=== PATIENT | male | born 1930 | race Caucasian/White ===

== ENCOUNTER 2017-06-22 06:33 | Inpatient (IN) ==
--- NOTE | 2017-06-21 21:35 | Discharge Summary ---
<Sofia Gerard Sim - Last Filed: 06/21/17 21:33> Date of Encounter: 06/21/17 - Discharge Diagnosis (1) Rotator cuff tear arthropathy of right shoulder Priority: Primary Status: Acute (2) Status post total replacement of right shoulder Priority: Primary Status: Acute (3) CAD (coronary artery disease) Priority: Secondary Status: Chronic Qualifiers: Coronary Disease-Associated Artery/Lesion type: unspecified vessel or lesion type [place] vs. transplanted heart: [place] heart Associated angina: without angina Qualified Code(s): I25.10 - Atherosclerotic heart disease of [place] coronary artery without angina pectoris (4) CKD (chronic kidney disease) stage 3, GFR 30-59 ml/min Priority: Secondary Status: Chronic (5) HTN (hypertension) Priority: Secondary Status: Chronic Qualifiers: Hypertension type: essential hypertension Qualified Code(s): I10 - Essential (primary) hypertension (6) History of CVA (cerebrovascular accident) Priority: Secondary Status: Chronic (7) DMII (diabetes mellitus, type 2) Priority: Secondary Status: Chronic Qualifiers: Diabetes mellitus complication status: without complication Diabetes mellitus buttermilk drier operator insulin use: unspecified buttermilk drier operator insulin use status Qualified Code(s): E11.9 - Type 2 diabetes mellitus without complications - Discharge Medications Home Medications: HYDROcodone/Acet 5/325 mg [[place] 5-325 mg] 1 - 2 tab PO Q6H PRN #40 tab [Rx] Cholecalciferol (Vitamin D3) [Vitamin D3] 5,000 unit PO DAILY 06/22/17 [History] Clopidogrel [Plavix] 75 mg PO DAILY 06/22/17 [History] Polyvinyl Alcohol [Artificial Tears] 1 - 2 drop OP TID PRN 06/22/17 [History] Simvastatin [Zocor] 20 mg PO DAILY 06/22/17 [History] amLODIPine [Norvasc] 5 mg PO DAILY 06/22/17 [History] Allergies/Adverse Reactions: 3 Allergy/AdvReac Type Severity Reaction Status Date / Time Penicillins [PCN] AdvReac See Verified 06/22/17 07:02 Comments Primary care physician: Alex Welch MD - Patient Status Disposition: Home, Self-Care Condition: Good - Discharge Instructions Follow Up With: Alex Welch MD [Primary Care Provider] - Oscar Tellez MD [Partnered Physician] - 07/02/17 1:00 pm Additional Instructions: Discharge Instructions: Total Shoulder Please call [facility] ([phone]), your Primary Care Physician, or report to the Emergency Room if you have any of the following symptoms: Nausea, vomiting, fever greater that 101.5, swelling, chest pain, shortness of breath, increased pain/redness/drainage/odor for your incision site, numbness/ tingling, or any other concerning symptoms. ACTIVITY: Always keep your arm in the sling. Do not raise your arm away from your body. Do not use your arm to help with getting in or out of bed. No weight bearing permitted. Only perform those exercises given to you by your therapist. MEDICATIONS: Upon discharge resume your home medications. Take all the medications as prescribed. Take a stool softener if taking narcotic pain medications. Stool softeners are only effective if you drink enough fluids. Drink 6-8 glass of water or fluids a day, unless this is not allowed for another health problem. Despite using stool softeners, if you haven't had a bowel movement in 3 days, please switch to a gentle laxative. Gentle laxatives are sold over the counter. You should have a bowel movement within 24 hours, if not call the office. You will be discharged from the hospital with a prescription for pain medication. You are encouraged to decrease the use of narcotic pain medication as tolerated. Should you require a refill, please call the office. [facility] prescribes narcotic pain medication for only 4-6 weeks after surgery. If you require pain medication beyond this time period, you may be referred to your Primary Care Physician or to the Pain Clinic for further evaluation. Plan ahead for refills on pain medication as many narcotics either need to be picked up at the office or mailed. It is best to call 48-72 hours in advance of needing a prescription refill so you don't run out of medication. To help control the post-operative pain, you may take NSAIDs (Aleve,Advil, Motrin, Ibuprofen, Naprosyn) or Tylenol as prescribed on the bottle in addition to the pain medication. WOUND CARE: Leave the dressing on for 7-10 days. You may change the dressing if it becomes saturated greater than 50%. Do not get the dressing wet at anytime. Wash your hands with antibacterial soap, rinse and dry prior to any wound care. If you have shiva the visiting nurse or rehab facility can remove the stapes 10-14 days after surgery and place steri-strips across the wound. Leave the steri-strips in place until they fall off on their own. You may let water from the shower run on top of the steri-strips. If you do not have a visiting nurse or rehab facility, you will need to return to the office at 10-14 days for the shiva to be removed. If you have itching or redness around the dressing call the office. FOLLOW-UP: Please follow up with your surgeon in the orthopedic clinic, as scheduled - Hospital Course Hospital course: Mr. Carmen is a 86 year old male - Time Spent with Patient Total time spent providing and/or coordinating discharge services: <Oscar Tellez - Last Filed: 06/23/17 06:52> Date of Encounter: 06/23/17 Time of Encounter: 06:51 - Discharge Diagnosis (1) Rotator cuff tear arthropathy of right shoulder Priority: Primary Status: Chronic (2) Status post total replacement of right shoulder Priority: Primary Status: Acute (3) CAD (coronary artery disease) Priority: Secondary Status: Chronic Qualifiers: Coronary Disease-Associated Artery/Lesion type: unspecified vessel or lesion type [place] vs. transplanted heart: [place] heart Associated angina: without angina Qualified Code(s): I25.10 - Atherosclerotic heart disease of [place] coronary artery without angina pectoris (4) CKD (chronic kidney disease) stage 3, GFR 30-59 ml/min Priority: Secondary Status: Chronic (5) HTN (hypertension) Priority: Secondary Status: Chronic Qualifiers: Hypertension type: essential hypertension Qualified Code(s): I10 - Essential (primary) hypertension (6) History of CVA (cerebrovascular accident) Priority: Secondary Status: Chronic (7) DMII (diabetes mellitus, type 2) Priority: Secondary Status: Chronic Qualifiers: Diabetes mellitus complication status: without complication Diabetes mellitus detention insulin use: unspecified buttermilk drier operator insulin use status Qualified Code(s): E11.9 - Type 2 diabetes mellitus without complications Primary care physician: Alex Welch MD - Patient Status Functional capacity at discharge: independent ambulation Overall status at discharge: patient is progressing back to baseline - Hospital Course Hospital course: Mr. Carmen is a 86 year old male Status post right total shoulder replacement discharged same day. - Time Spent with Patient Total time spent providing and/or coordinating discharge services:
--- NOTE | 2017-06-22 06:38 | History & Physical Report ---
Date of Encounter: 06/22/17 Time of Encounter: 06:38 24 Hour HP Update - Instructions Instructions: If the History and Physical is less than 30 days old and was completed prior to A.M. admission and or procedure and has NOT been updated on calendar day of procedure please complete this update prior to performing procedure. - Update Patient reports changes in Medical Condition: No Changes in examination, assessment, or condition: No Changes in Medication: No Preop tests/diagnostics Reviewed: Yes Surgery Remains Indicated: Yes Consent for Planned Operative Procedure(s) Verified: Yes - Pre-Operative Checklist Preoperative Checklist Indicated: No Prophylactic Antibiotic Ordered: Yes Is VTE Prophylaxis Indicated?: NO
[2017-06-22] MEDS ORDERED: *HR* FentaNYL (PF) 100 MCG/2 ML VIAL ONE (07:17)
[2017-06-22] MEDS ORDERED: *HR* Propofol 200 MG/20 ML VIAL IVP ONE ×2 (07:17→08:30)
[2017-06-22] MEDS ORDERED: Lidocaine -MPF 2% 2 ML VIAL ONE (07:17)
[2017-06-22] MEDS ORDERED: Lidocaine -MPF 1% 2 ML VIAL ID ONE (07:37)
[2017-06-22] MEDS ORDERED: Clindamycin 900 MG/50 ML 900 MG/50 ML IV.SOLN IVPB ONE (07:37)
[2017-06-22] MEDS ORDERED: Lidocaine -MPF 1% 2 ML VIAL ONE (07:42)
[2017-06-22] MEDS ORDERED: Plasma-Lyte A (PH 7.4) 1,000 ML IVC SCH (07:45)
[2017-06-22] MEDS ORDERED: Vancomycin 1,250 MG in D5% in Water 250 ML IVPB ONE (08:05)
[2017-06-22] MEDS ORDERED: ROPIVACAINE HCL/PF 0.5% 30 ML VIAL ONE (08:16)
--- NOTE | 2017-06-22 08:16 | Anesthesia Evaluation PreOp ---
Date of Encounter: 06/22/17 Time of Encounter: 08:14 - Past History Planned Operation: r tsr Cardiac History: HTN, Hyperlipidemia, Other (cad. echo 04/16: ef 55, nl rv. 05/16 : neg tilt table) Pulmonary History: Denies Any Significant HX BRANCH OFFICE ADMINISTRATOR History: CVA, Other (carotid, 05/17, r prox 80-99, l ica 40-59) Anesthesia History: No Prior Anesthetic Complications, Past Anesthesia (appy, hemorrhoid, lumbar) Alcohol Use: none Drug use: none Medications and Allergies HYDROcodone/Acet 5/325 mg [[place] 5-325 mg] 1 - 2 tab PO Q6H PRN #40 tab [Rx] Cholecalciferol (Vitamin D3) [Vitamin D3] 5,000 unit PO DAILY 06/22/17 [History] Clopidogrel [Plavix] 75 mg PO DAILY 06/22/17 [History] Polyvinyl Alcohol [Artificial Tears] 1 - 2 drop OP TID PRN 06/22/17 [History] Simvastatin [Zocor] 20 mg PO DAILY 06/22/17 [History] amLODIPine [Norvasc] 5 mg PO DAILY 06/22/17 [History] 3 Allergy/AdvReac Type Severity Reaction Status Date / Time Penicillins [PCN] AdvReac See Verified 06/22/17 07:02 Comments - Meds/Allergy Pre-op Review Medications Reviewed: Yes Allergies Reviewed: Yes Beta Blockers on Current Med List: No Anesthesia Results - Labs Laboratory Tests 05/27/16 06/18/17 06/18/17 17:23 14:08 14:08 Hgb 13.8 Hct 41.6 Plt Count 148 PT 11.4 INR 1.1 APTT 27.6 Sodium Potassium POC Creatinine 1.50 H 06/18/17 14:08 Hgb Hct Plt Count PT INR APTT Sodium 139 Potassium 4.5 POC Creatinine - Imaging EKG: report reviewed (06/17 sb, first deg avb, rbbb, lafb. 05/18 af, rbbb) Anesthesia Exam O2 Sat Height 1.75 m Height 1.75 m Height 1.75 m Weight 84.822 kg Weight 84.822 kg Weight 84.822 kg O2 Sat by Pulse Oximetry 97 Vital Signs Temp Pulse Resp BP Pulse Ox 98.2 F 76 18 159/76 97 06/22/17 06:56 06/22/17 06:56 06/22/17 06:56 06/22/17 06:56 06/22/17 06:56 Height: 1.75 Weight: 85 NPO (# of Hours): >8 - HEENT Pupil (Motor): Pupils equal, EOMI Mallampati: II Teeth: Poor dentition Oral Opening: Greater than 3 - BRANCH OFFICE ADMINISTRATOR LOC: Oriented BRANCH OFFICE ADMINISTRATOR Motor: Normal RUE, Normal LUE, Normal RLE, Normal LLE, Normal Face BRANCH OFFICE ADMINISTRATOR Sensory: Normal: RUE, LUE, RLE, LLE, Face - Cardiac Rhythm: Regular Murmur: None - Pulmonary Breath Sounds: bilateral Clear Respiratory Effort: Symmetrical Anesthesia Assess/Plan ASA Score: 3 Modified [place] Scale for Level of Consciousness: Cooperative, oriented, and tranquil Anesthetic Plan: General, Regional Monitoring Plan: Standard Monitors Recovery Plan: PACU
[2017-06-22] MEDS ORDERED: Ketorolac 30 MG/ML VIAL ONE (08:22)
[2017-06-22] MEDS ORDERED: *HR* Morphine 10 MG/ML VIAL ONE (08:29)
--- NOTE | 2017-06-22 09:19 | Anesthesia Procedures ---
Date of Encounter: 06/23/17 Time of Encounter: 09:16 Procedures: Anesthesia - Nerve Block Procedure Date: 06/22/17 Time: 09:16 Pre-op Diagnosis: Arthrits rt shoulder Surgical Procedure: Total Shoulder replacement RT Checklist: Correct Patient Identifier Correct side: Right Blood Thinner: No Monitor Applied: EKG, BP, Pulse Oximetry Supplemental Oxygen via Nasal Cannula (L/min): 3 Sedation: Fentanyl (mcg): 100 Indication: Post Op Analgesia (per req Dr Tellez) Pre-op Neuro Deficits: No Block Type: Supraclavicular Catheter placed: No Sterile Technique: Yes Ultrasound used: Yes Anatomy identified: Yes Visual spread of Local: Yes Neuro Stimulation: No Blood on Needle Aspiration: No Smooth Injection of Local: Yes Pain with Injection of Local: No Prep: Chlorhexadine Needle: 22 x 50 mm Stimuplex Local: Ropivacaine Volume (cc): 30 Number of Attempts: 1 Complications: None/effective block Vitals: Vital Signs/O2 Sat, Most Current Temp Pulse Resp BP Pulse Ox 97.3 F L 77 18 135/80 95 06/22/17 15:18 06/22/17 15:18 06/22/17 15:18 06/22/17 15:18 06/22/17 15:18 Comments: aseptic, tolerated well, effective
[2017-06-22] MEDS ORDERED: Dexamethasone 4 MG/ML VIAL ONE (09:32)
[2017-06-22] MEDS ORDERED: Ondansetron 4 MG/2 ML VIAL ONE (09:32)
[2017-06-22] MEDS ORDERED: EPHEDrine 50 MG/ML VIAL ONE (09:33)
[2017-06-22] MEDS ORDERED: Dexamethasone 4 MG/ML VIAL IVP ONE (09:42)
[2017-06-22] MEDS ORDERED: *HR* Labetalol 20 MG/4 ML SYRINGE IVP PRN (09:42)
--- NOTE | 2017-06-22 10:00 | Orthopedic Operative Note ---
Date of procedure: 06/22/17 Pre-op diagnosis: Right shoulder cuff tear arthropathy Post-op diagnosis: same Procedure: Procedure: Total Shoulder Replacment Reverse, right Estimated blood loss: 100 cc Hardware: Metal and polyethylene replacement: Arthrex large glenoid baseplate, 2 4.5 screws. 1 6.5 screw, 42+4 glenosphere, 10 humeral stem, poly insert 3, 6 metal Exam Under anesthesia: Full motion and no stability Procedural Notes: Irreparable tear subscap supraspinatus Operative procedure: The patient was brought to the operating room and placed on the operating room table. After general anesthesia was administered the operative shoulder was examined. Findings were noted. The patient was placed in the modified beachchair position. All pressure points were padded appropriately. And the head was stabilized in the neutral position. The operative extremity was prepped and draped in the sterile surgical fashion. The patient received IV antibiotics prior to skin incision. A standard deltopectoral approach was made to the operative shoulder. Incision was made to the skin and subcutaneous tissue,hemo stasis was obtained with Bovie cautery. Using careful blunt dissection the cephalic vein was identified and mobilized medially. The deltopectoral interval was developed and the clavipectoral fascia was incised. The subscap was a irrepairable. The humerus was dislocated patient noted to have irreparable tear supraspinatus tendon, and the humeral cut was made along the anatomic neck. Anterior and posterior Bankart retractors were placed to expose the glenoid. The glenoid guide was seated and the centering hole was made. It was reamed with the appropriate reamer. The large baseplate was seated and secured with (2) 4.5 screws and one 6.5 screw. The baseplate was irrigated and dried and the 42+4 Glenosphere was seated and secured with the Zelaya taper. The Zelaya taper was tested and found to be secure the humerus was redislocated and prepared with the diaphyseal reamers, followed by a broaching process up to the appropriate size 10 in the patient's anatomic version. The metaphyseal reamer was then utilized. Trial reduction found the shoulder to be relocatable. Trial components were removed and The appropriate 10 stem was impacted in place in the patient's anatomic version. Trial reduction found the shoulder to be relocatable and stable with the appropriate 6 metal 3 Viky Trial component was removed and the real implants was seated and secured the shoulder was reduced. The shoulder had excellent motion and excellent stability and no evidence of dislocation. The deep tissue was irrigated with pulse irrigation. The PA closed the shoulder. The deltopectoral interval was closed with a running #1 PDS suture, subcutaneous tissue was irrigated and closed with 0 PDS suture, the skin was closed with Dermabond. The patient was placed in a sterile dressing, abduction brace and extubated. The patient was then transferred to the recovery room in stable condition. Anesthesia: GETA Surgeon: Oscar Tellez Orthotics Technician: Sofia Gerard Condition: stable Disposition: PACU
[2017-06-22 10:35] LABS: Hemoglobin 13.3 g/dL (12.9-16.9)
--- NOTE | 2017-06-22 10:45 | Anesthesia Evaluation Post Op ---
Date of Encounter: 06/22/17 Time of Encounter: 10:44 - Vital Signs Vital Signs: Vital Signs/O2 Sat/Glucose, Most Current Temp Pulse Resp BP Pulse Ox 06/22/17 10:35 80 15 140/74 95 06/22/17 10:25 87 16 136/77 96 06/22/17 10:15 97.4 F L 101 18 174/85 97 06/22/17 09:13 82 16 172/88 99 06/22/17 09:05 77 16 181/89 100 06/22/17 06:56 98.2 F 76 18 159/76 97 - Lungs Lungs: Clear Ascult./Percussion - Airway Airway: Non-obstructed - Cardiovascular Regular Rate - Mental Status Mental Status: Alert & Oriented, Answers Appropriately - Pain Pain Scale: 0 - Nausea Vomiting Nausea Vomiting: Not Present - Hydration Hydration: Ice chips - Discharge PostOp Status: Transfer Patient to floor
[2017-06-22] MEDS ORDERED: amLODIPine 5 MG TABLET PO SCH (11:01)
[2017-06-22] MEDS ORDERED: Naloxone 0.4 MG/ML INJ IVP PRN (11:01)
[2017-06-22] MEDS ORDERED: Artificial Tears SOLN 15 ML BOTTLE OP PRN (11:01)
[2017-06-22] MEDS ORDERED: MOM Conc 10 ML UD.LIQ PO PRN (11:01)
[2017-06-22] MEDS ORDERED: Cholecalciferol (D-3) 1,000 UNIT TABLET PO SCH (11:01)
[2017-06-22] MEDS ORDERED: *HR* OxyCODONE Immed Rel 5 MG TABLET PO PRN ×2 (11:01)
[2017-06-22] MEDS ORDERED: *HR* HYDROmorphone (PF) 1 MG/ML SYRINGE IVP PRN (11:01)
[2017-06-22] MEDS ORDERED: Ondansetron 4 MG/2 ML VIAL IVP PRN (11:01)
[2017-06-22] MEDS ORDERED: Temazepam 15 MG CAPSULE PO PRN (11:01)
[2017-06-22] MEDS ORDERED: Ringers Solution, Lactated 1,000 ML IVC SCH (11:01)
[2017-06-22] MEDS ORDERED: Sennosides 8.6 MG TABLET PO PRN (11:01)
[2017-06-22] MEDS ORDERED: Clindamycin 900 MG/50 ML 900 MG/50 ML IV.SOLN IVPB SCH ×2 (11:01→11:15)
[2017-06-22 15:18] VITALS: BP 135/80
[2017-06-22] MEDS ORDERED: *HR* Enoxaparin 30 MG/0.3 ML SYRINGE SQ SCH ×2 (18:00)
== END 2017-06-22 16:56 | disposition home or self-care (01) | DRG 483 ==
LOC: SAMDAY 06:33 → 3NENU 10:58
PROVIDERS: ADMIT Orthopaedic Surgery; ATTEND Orthopaedic Surgery

== ENCOUNTER 2018-03-12 10:28 | Observation (INO) ==
[~2018-03-12 10:28] MED LIST: Vancomycin 1,000 MG, Sodium Chloride IRRigation 1,000 ML IR ONE
[2018-03-12] MEDS ORDERED: Nitroglycerin 25 MG/250 ML INFUS..BTL IVC ONE (10:38)
[2018-03-12] MEDS ORDERED: Heparin 1,000 UNITS/500 mL 500 ML ONE (10:40)
[2018-03-12] MEDS ORDERED: CeFAZolin Syr 2,000MG/20 ML 2,000 MG/20 ML SYRINGE IVPB ONE (10:52)
[2018-03-12] MEDS ORDERED: Ringers Solution, Lactated 1,000 ML IVC SCH (11:00)
--- NOTE | 2018-03-12 11:15 | Anesthesia Evaluation PreOp ---
Date of Encounter: 03/12/18 Time of Encounter: 11:13 - Past History Planned Operation: Right carotid endarterectomy Cardiac History: HTN, Hyperlipidemia Pulmonary History: Former smoker (quit over 60 years ago) OFFICE SERVICES ASSOCIATE History: CVA (residual RUE numbness (and mild weakness)) Other Medical History: Diabetes Type II, Other (BPH) Anesthesia History: No Prior Anesthetic Complications Alcohol Use: none Drug use: none Medications and Allergies Cholecalciferol (Vitamin D3) [Vitamin D3] 5,000 unit PO DAILY 06/22/17 [History] Clopidogrel [Plavix] 75 mg PO DAILY 06/22/17 [History] Simvastatin [Zocor] 20 mg PO DAILY 06/22/17 [History] amLODIPine [Norvasc] 5 mg PO DAILY 06/22/17 [History] Tamsulosin HCl [Flomax] 0.4 mg PO DAILY 03/12/18 [History] glipiZIDE [Glucotrol] 5 mg PO DAILY 03/12/18 [History] 3 Allergy/AdvReac Type Severity Reaction Status Date / Time Penicillins [PCN] AdvReac See Verified 03/12/18 11:19 Comments - Meds/Allergy Pre-op Review Medications Reviewed: Yes Allergies Reviewed: Yes Beta Blockers on Current Med List: No Anesthesia Results - Labs Laboratory Tests 03/08/18 03/08/18 03/08/18 07:10 07:10 07:10 WBC 6.0 Hgb 14.5 Hct 44.0 Plt Count 164 PT 11.6 INR 1.1 APTT 29.3 Sodium 141 Potassium 4.0 Chloride 109 H Carbon Dioxide 24 Creatinine 1.38 H Est GFR ( Amer) 59 L Est GFR (Non-Af Amer) 49 L BUN/Creatinine Ratio 20 Glucose 137 H Est Mean Plasma Glucose Hemoglobin A1c Calculated Osmolality 299 Calcium 9.1 03/08/18 07:10 WBC Hgb Hct Plt Count PT INR APTT Sodium Potassium Chloride Carbon Dioxide Creatinine Est GFR ( Amer) Est GFR (Non-Af Amer) BUN/Creatinine Ratio Glucose Est Mean Plasma Glucose 143 Hemoglobin A1c 6.6 H Calculated Osmolality Calcium - Imaging EKG: report reviewed, image reviewed (NORMAL SINUS RHYTHM RIGHT BUNDLE BRANCH BLOCK LEFTWARD AXIS) Anesthesia Exam Last Vital Signs Temp 98.2 F 03/12/18 11:01 Pulse 77 03/12/18 11:01 Resp 18 03/12/18 11:01 BP 132/74 03/12/18 11:01 Pulse Ox 96 03/12/18 11:01 Weight: 83 kg NPO (# of Hours): > 8 hrs - HEENT Pupil (Motor): Pupils equal, EOMI Mallampati: II Teeth: Poor dentition Oral Opening: Greater than 3 - OFFICE SERVICES ASSOCIATE LOC: Oriented OFFICE SERVICES ASSOCIATE Motor: Deficit RUE OFFICE SERVICES ASSOCIATE Sensory: Deficit: RUE - Cardiac Rhythm: Regular Murmur: None - Pulmonary Breath Sounds: bilateral Clear Respiratory Effort: Symmetrical Anesthesia Assess/Plan ASA Score: 3 Modified [place] Scale for Level of Consciousness: Cooperative, oriented, and tranquil Anesthetic Plan: General Monitoring Plan: Standard Monitors, A-Line Recovery Plan: PACU
--- NOTE | 2018-03-12 11:36 | History & Physical Report ---
Date of Encounter: 03/12/18 Time of Encounter: 11:25 24 Hour HP Update - Instructions Instructions: If the History and Physical is less than 30 days old and was completed prior to A.M. admission and or procedure and has NOT been updated on calendar day of procedure please complete this update prior to performing procedure. - Update Patient reports changes in Medical Condition: No Changes in examination, assessment, or condition: No Changes in Medication: No Preop tests/diagnostics Reviewed: Yes Surgery Remains Indicated: Yes Consent for Planned Operative Procedure(s) Verified: Yes - Pre-Operative Checklist Preoperative Checklist Indicated: Yes Prophylactic Antibiotic Ordered: Yes (VANCOMYCIN DUE TO MRSA RISK) Home Medications Include Beta Jolene: No Beta Jolene Taken Today (Day of Surgery): No Beta Jolene Taken Yesterday (Day Prior to Surgery): No Is VTE Prophylaxis Indicated?: Yes
[2018-03-12] MEDS ORDERED: Protamine Sulfate 50 MG/5 ML VIAL IVP ONE (11:45)
[2018-03-12] MEDS ORDERED: Vancomycin 1,000 MG VIAL ONE (11:46)
[2018-03-12] MEDS ORDERED: Lidocaine 1% 20 ML MDV ONE (11:46)
[2018-03-12] MEDS ORDERED: Bupivacaine-MPF 0.25% 10 ML VIAL ONE (11:46)
[2018-03-12] MEDS ORDERED: Heparin 1,000 UNITS/500 mL 1,000 ML ONE (11:46)
[2018-03-12] MEDS ORDERED: *HR* Midazolam HCl 2 MG/2 ML VIAL ONE (12:05)
[2018-03-12] MEDS ORDERED: *HR* FentaNYL (PF) 100 MCG/2 ML VIAL ONE ×2 (12:05→15:18)
[2018-03-12] MEDS ORDERED: *HR* Propofol 200 MG/20 ML VIAL IVP ONE (12:05)
[2018-03-12] MEDS ORDERED: *HR* Succinylcholine 200 MG/10 ML VIAL IVP ONE (12:06)
[2018-03-12] MEDS ORDERED: Lidocaine -MPF 2% 2 ML VIAL ONE ×2 (12:06→12:07)
[2018-03-12] MEDS ORDERED: Dexamethasone 4 MG/ML VIAL ONE (12:06)
[2018-03-12] MEDS ORDERED: *HR* Rocuronium Bromide 50 MG/5 ML VIAL ONE (12:06)
[2018-03-12] MEDS ORDERED: *HR* Heparin 5,000 UNIT/ML VIAL ONE (12:06)
[2018-03-12] MEDS ORDERED: *HR* PHENYLEPHRINE 1,000 MCG/10 ML SYRINGE IVP ONE ×2 (12:36→13:27)
[2018-03-12] MEDS ORDERED: *HR* Phenylephrine 10 MG/ML VIAL ONE (13:29)
--- NOTE | 2018-03-12 13:58 | Anesthesia Procedures ---
Date of Encounter: 03/12/18 Time of Encounter: 12:08 Procedures: Anesthesia - Arterial Line Consent obtained: written consent Time out performed: Yes Sedation: Fentanyl (mcg): 0 (See Anes record) Supplemental Oxygen via Nasal Cannula (L/min): 2 Local Anesthetic: Other (Lidocaine 2%) Amount of Anesthetic used (mls): 0.3 Size (Gauge): 20 Length (inches): 1 3/4 Technique Used: sterile prep, direct puncture technique Post-Procedure: line taped into place, dry sterile dressing placed Patient tolerated procedure: well Complications: none Site: Radial L Vitals: Reorded and s.table
[2018-03-12] MEDS ORDERED: *HR* Metoprolol 5 MG/5 ML VIAL IVP ONE (14:08)
[2018-03-12] MEDS ORDERED: *HR* OxyCODONE Immed Rel 5 MG TABLET PO PRN (14:09)
[2018-03-12] MEDS ORDERED: Acetaminophen IV 1,000 MG/100 ML INFUS..BTL IVPB ONE (14:09)
[2018-03-12] MEDS ORDERED: Ondansetron 4 MG/2 ML VIAL ONE (14:16)
[2018-03-12] MEDS ORDERED: Neostigmine Methylsulfate 3 MG/3 ML SYRINGE ONE (15:13)
--- NOTE | 2018-03-12 15:14 | Operative Note ---
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 Complications: None Anesthesia: GETA Surgeon: Sergio Cuevas Was there an surgical supply assistant present: No Estimated blood loss (cc): 50 Specimen: Right carotid plaque Condition: stable Disposition: PACU Procedure in Detail: Indications: The patient is a 87-year-old male with a history of a symptomatic 80-99% right internal carotid artery stenosis. He has had multiple episodes of amaurosis fugax. A right carotid endarterectomy was recommended to reduce his risk of recurrent symptoms and/or stroke. Procedure: The patient was identified in the preoperative area. The risks, benefits, and alternatives of the procedure were discussed and all questions were answered. The patient was then taken to the operating room and placed in supine position on the operating table. After the induction of general endotracheal anesthesia, the patient was cleaned and draped in normal sterile fashion. A longitudinal incision was made anterior to the right sternocleidomastoid muscle. Hemostasis was obtained via electrocautery. Through a process of blunt , sharp, and electrocautery dissection, the platysma was traversed and the jugular vein was identified. The facial vein was dissected, clamped, divided and ligated with a 2-0 silk suture ligature. The jugular vein was retracted to expose the carotid bifurcation. The patient received 2000 units of heparin intravenously at this time. Proximal dissection of the common and external carotid arteries were performed circumferentially. Dissection of the internal carotid was performed circumferentially. Vessels loops were passed around the internal and external carotid and an umbilical tape was passed from the common carotid artery. The patient received additional 3000 units of heparin intravenously. After waiting adequate time for the heparin to circulate, the vessels were occluded and a longitudinal arteriotomy was made into the common carotid artery and extended into the internal carotid beyond the plaque. Vigorous pulsatile retrograde flow was noted from the internal carotid artery upon release of the vessel loop. Due to the rapid pulsatile retrograde flow, no shunt was placed. A dental [place] was then used to perform a standard endarterectomy. Proximal and distal endpoints were inspected. No elevated flaps were noted. Additional heparin was given throughout the procedure to maintain adequate anticoagulation. A Hemashield patch was cut to fit the defect and sutured in place with running 6 -0 Prolene. Prior to completing the closure, each vessel was flushed and then reoccluded. Heparinized saline was infused into the lumen. The patch was completed. Flow was restored in the external carotid artery, followed the common carotid artery, lastly the internal carotid artery was opened. A low resistance arterialized signal was present within the internal carotid artery beyond the patch. Thrombin and Gelfoam were used to aid in hemostasis. Meticulous hemostasis was obtained throughout the wound with electrocautery. Platelet rich and platelet poor plasma were infused into the wounds. The sternocleidomastoid was reapproximated with interrupted 3-0 Vicryl. Platelet rich and platelet poor plasma were infused into the wound. A TLS drain was brought through a separate stab incision and sutured in place with 0 silk suture. The platysma was reapproximated with running 3-0 Vicryl. Local anesthetic was infused in the skin. A 3-0 Monocryl was used to reapproximate the skin. A sterile dressing was applied. The patient was extubated, taken to the recovery room in stable condition.
[2018-03-12] MEDS ORDERED: Glycopyrrolate 0.2 MG/ML VIAL ONE (15:37)
[2018-03-12] MEDS ORDERED: *HR* FentaNYL (PF) 100 MCG/2 ML VIAL IVP ONE (15:41)
--- NOTE | 2018-03-12 15:44 | Discharge Summary ---
<FarzanehRomeo J - Last Filed: 03/14/18 13:19> Orders not resulted at time of discharge: Pending orders 03/12/18 14:33 Surgical Pathology [PTH] Routine Date of Encounter: 03/14/18 Time of Encounter: 13:19 - Discharge Diagnosis (1) Bradycardia Priority: Secondary Status: Acute Comments: Spontaneously resolved. No findings of bradycardia on postoperative day 2. (2) Carotid stenosis, bilateral Priority: Primary Status: Acute Comments: Patient had high-grade right carotid stenosis. He underwent an unremarkable right carotid endarterectomy. Patient was stable post op. He was felt fit for discharge on postoperative day #2. - Hospital Course Hospital course: Mr. Carmen is a 87 year old male With high-grade right carotid artery stenosis amaurosis fugax. Patient underwent a right carotid endarterectomy with Dr. Cuevas on Thursday. Patient had an uneventful postoperative course. The patient was noted to have bradycardia which was asymptomatic. This resolved spontaneously. The patient was felt fit for discharge on the afternoon of postoperative day #2. Instructions were given to the patient in regards to wound care and activity and medications. Patient is to follow-up with Dr. Cuevas on Thursday. - Time Spent with Patient Total time spent providing and/or coordinating discharge services: - Discharge Medications Prescriptions: HYDROcodone/Acet 5/325 mg [[place] 5-325 mg] 1 tab PO Q6HR PRN 7 Days #7 tablet PRN Reason: Moderate Pain Home Medications: Cholecalciferol (Vitamin D3) [Vitamin D3] 5,000 unit PO DAILY 06/22/17 [History] Clopidogrel [Plavix] 75 mg PO DAILY 06/22/17 [History] Simvastatin [Zocor] 20 mg PO DAILY 06/22/17 [History] amLODIPine [Norvasc] 5 mg PO DAILY 06/22/17 [History] HYDROcodone/Acet 5/325 mg [[place] 5-325 mg] 1 tab PO Q6H PRN 4 Days #16 tab 03/12 [Rx] Tamsulosin HCl [Flomax] 0.4 mg PO DAILY 03/12/18 [History] glipiZIDE [Glucotrol] 5 mg PO DAILY 03/12/18 [History] HYDROcodone/Acet 5/325 mg [[place] 5-325 mg] 1 tab PO Q6HR PRN 7 Days #7 tablet [Rx] Allergies/Adverse Reactions: 3 Allergy/AdvReac Type Severity Reaction Status Date / Time Penicillins [PCN] AdvReac See Verified 03/12/18 11:19 Comments Date of admission: 03/12/18 16:32 Primary care physician: Alex Welch MD Consults: None Procedure(s) Performed: Right carotid endarterectomy Discharging clinician: Romeo Moy Anticipated date of discharge: 03/14/18 Exam Vital Signs, Last 4 Hours Temp Pulse Resp BP Pulse Ox 03/14/18 11:59 57 03/14/18 11:09 97.9 F 96 18 159/65 92 General: Present: Conversant, No Apparent Distress HEENT: Present: Atraumatic, Normocephaly, Trachea midline Neck: Absent: JVD Cardiac: Present: Reg Rate and Rhythm, Normal S1 and S2 Lungs: Present: Normal Breath Sounds Neuro: Present: Alert and responsive, No focal deficits noted, Cranial nerves grossly intact Vascular: Present: Surgical incisions (Right neck incision is clean and dry.) Skin: Present: No rashes noted on visualized skin - Patient Status Disposition: Home, Self-Care Functional capacity at discharge: independent ambulation Overall status at discharge: patient is progressing back to baseline - Discharge Instructions Instructions: Hydrocodone/Acetaminophen (By mouth), Peripheral Vascular Disorders (DC) Follow Up With: Alex Welch MD [Primary Care Provider] - (Please call Dr. Welch's office to schedule an appointment within 5-7 days.) Sergio Cuevas MD [Partnered Physician] - (Follow-up with Dr. Cuevas on Thursday. Call office on Thursday morning after 8 AM to schedule time for follow-up appointment.) Additional Instructions: Keep right neck surgical incision dry for 5 days after surgery May remove drain exit site gauze tomorrow Resume usual home medications No lifting greater than 10 pounds No automobile driving for 2 weeks Patient may sleep in any position that is comfortable for him - Diet and Activity Activity: increase activity as tolerated Diet: advance to your usual diet <Sergio Cuevas - Last Filed: 03/17/18 07:06> Orders not resulted at time of discharge: Pending orders 03/12/18 14:33 Surgical Pathology [PTH] Routine Date of Encounter: 03/14/18 (Seen By Dr. Moy) - Discharge Diagnosis (1) Carotid stenosis, bilateral Status: Acute (2) CAD (coronary artery disease) Status: Chronic Qualifiers: Coronary Disease-Associated Artery/Lesion type: unspecified vessel or lesion type [place] vs. transplanted heart: [place] heart Associated angina: without angina Qualified Code(s): I25.10 - Atherosclerotic heart disease of [place] coronary artery without angina pectoris (3) CKD (chronic kidney disease) stage 3, GFR 30-59 ml/min Status: Chronic (4) HTN (hypertension) Status: Chronic Qualifiers: Hypertension type: essential hypertension Qualified Code(s): I10 - Essential (primary) hypertension (5) DMII (diabetes mellitus, type 2) Status: Chronic Qualifiers: Diabetes mellitus mcfp insulin use: unspecified mcfp insulin use status Diabetes mellitus complication status: without complication Qualified Code(s): E11.9 - Type 2 diabetes mellitus without complications - Hospital Course Hospital course: Mr. Carmen is a 87 year old male - Time Spent with Patient Total time spent providing and/or coordinating discharge services: Primary care physician: Alex Welch MD Discharging clinician: Sergio Cuevas Exam Vital Signs, Last 4 Hours Temp Pulse Resp BP Pulse Ox 03/12/18 15:35 97.8 F 40 20 94/53 98 03/12/18 15:25 97.8 F 42 20 100/54 98 03/12/18 15:15 97.4 F L 47 20 102/60 98 03/12/18 12:25 76 18 176/113 98
[2018-03-12] MEDS ORDERED: D5% in Water 1,000 ML IVC PRN (16:37)
[2018-03-12] MEDS ORDERED: Acetaminophen 325 MG TABLET PO PRN (16:37)
[2018-03-12] MEDS ORDERED: CeFAZolin Pre 2,000 MG/100 ML 2,000 MG/100 ML BAG IVPB SCH (16:37)
[2018-03-12] MEDS ORDERED: *HR* Labetalol 20 MG/4 ML SYRINGE IVP PRN (16:37)
[2018-03-12] MEDS ORDERED: OXYCODONE Oral CONC 10 MG/0.5 ML ORAL.SYG SL PRN ×2 (16:37)
[2018-03-12] MEDS ORDERED: 0.9 % Sodium Chloride 1,000 ML IVC SCH (16:37)
[2018-03-12] MEDS ORDERED: Ondansetron 4 MG/2 ML VIAL IVP PRN (16:37)
[2018-03-12] MEDS ORDERED: *HR* Dextrose 50 % in Water (Syg) 50 ML SYRINGE IVP PRN (16:37)
[2018-03-12] MEDS ORDERED: *HR* HYDROcodone/Acet 5/325 mg TABLET PO PRN (16:37)
[2018-03-12] MEDS ORDERED: Dextrose Gel 15 GM/37.5 ML TUBE PO PRN ×2 (16:37)
[2018-03-12] MEDS ORDERED: Naloxone 0.4 MG/ML INJ IVP PRN (16:37)
[2018-03-12] MEDS: Insulin LISPRO 300 UNITS/3 ML VIAL SQ SCH ×2 (17:44→20:50)
[2018-03-12] MEDS: *HR* OxyCODONE Immed Rel 5 MG TABLET PO PRN (17:52)
--- NOTE | 2018-03-12 18:48 | Event Note ---
Date of Encounter: 03/12/18 Time of Encounter: 18:00 The patient was seen and examined postoperatively. His no hematoma. He is neurologically intact. His pain is well-controlled. He will continue continue with clear liquids tonight. Pain control as needed. He will receive intravenous hydration tonight for chronic kidney disease. He will have repeat laboratory studies in the morning.
[2018-03-12] MEDS: *HR* Metoprolol 5 MG/5 ML VIAL IVP SCH (20:49)
[2018-03-13] MEDS: *HR* Metoprolol 5 MG/5 ML VIAL IVP SCH ×5 (00:08→23:57)
[2018-03-13 05:39] LABS: Basophils % 0.2 %; Hematocrit 35.4 % (37.5-50.1); Immature Granulocytes % 0.5 % (0-4); Lymphocytes # 0.9 K/mcL (0.6-4.6); Lymphocytes % 13.8 %; Mean Corpuscular HGB Conc 32.8 g/dL (31.6-35.5); Mean Corpuscular Hemoglobin 28.9 pg (28.0-33.3); Mean Corpuscular Volume 88.1 fL (83.0-100.0); Mean Platelet Volume 9.8 fL (9.4-12.4); Monocytes # 0.3 K/mcL (0.0-1.3); Monocytes % 5.4 %; Neutrophils # 5.1 K/mcL (1.6-8.9); Platelet Count 127 K/mcL (140-400); Red Blood Count 4.02 M/mcL (4.19-5.50); Segmented Neutrophils % 80.1 %
[2018-03-13 05:40] LABS: Hemoglobin 11.6 g/dL (12.9-16.9)
[2018-03-13 06:00] LABS: Calcium 8.4 mg/dL (8.6-10.3); Potassium 5.1 mEq/L (3.5-5.1)
[2018-03-13] MEDS: *HR* Heparin 5,000 UNIT/ML VIAL SQ SCH ×2 (06:08→16:34)
[2018-03-13] MEDS: amLODIPine 5 MG TABLET PO SCH (08:15)
[2018-03-13] MEDS: Insulin LISPRO 300 UNITS/3 ML VIAL SQ SCH ×4 (08:15→20:48)
[2018-03-13] MEDS: Cholecalciferol (D-3) 1,000 UNIT TABLET PO SCH (08:15)
--- NOTE | 2018-03-13 14:07 | Vascular/[facility] Progress Note ---
Date of Encounter: 03/13/18 Time of Encounter: 13:00 - Assessment and plan (1) Bradycardia Current Visit: Yes Status: Acute The patient had asymptomatic bradycardia noted on telemetry overnight. I reviewed this extensively with the patient and his . Due to the patient's age and past medical history of suggested that he be observed another day and that we continue his telemetry monitoring. If he is stable overnight and discharged tomorrow. He may then follow up for further evaluation as needed. The patient agrees and accepts my recommendation. (2) Carotid stenosis, bilateral Current Visit: Yes Status: Acute Postop day 1 following right carotid endarterectomy. Patient appears be neurologically intact. Patient has no significant drainage from from the right neck drain and this will be removed today. Will have patient ambulate in the hallways and in room today with assistance. - Subjective Interval history: Mr. Talavera is postoperative day 1 following right carotid endarterectomy by Dr. Cuevas. The patient was found to have marked bradycardia last night into the 40 bpm range. He was asymptomatic from this event. Patient does note right neck pain associated with the surgery. Vital Signs, Last 4 Hours Temp Pulse Resp BP Pulse Ox 03/13/18 12:00 99.6 F 49 18 150/90 94 - Physical Examination General: Present: Conversant, No Apparent Distress, Well developed, Well nourished HEENT: Present: Normocephaly, Trachea midline Neck: Present: Other. Absent: JVD, Midline deformity, Tracheal deviation Cardiac: Present: Reg Rate and Rhythm, Normal S1 and S2, No Murmur Lungs: Present: Normal Breath Sounds Neuro: Present: Alert and responsive, No focal deficits noted, Cranial nerves grossly intact, Motor nerves grossly intact, Sensory nerves grossly intact, Other (Mild instability to gait and station.) Vascular: Present: Normal capillary refill, Color/Temperature (Normal color and temperature of extremities), Surgical incisions (Right neck incision is covered with dressing. Right neck drain has no significant drainage and will be removed today.). Absent: Cyanosis, Edema Skin: Present: No rashes noted on visualized skin Musculoskeletal: Present: No Chest Wall Tenderness - VTE Documentation of Mechanical Device: Intermittent pneumatic compression device Results 03/13/18 05:06 03/13/18 05:06 Lab Results, Last 24 hours 03/13/18 03/13/18 05:06 05:06 WBC 6.3 Hgb 11.6 L D Hct 35.4 L Plt Count 127 L Sodium 136 Potassium 5.1 Chloride 108 H Carbon Dioxide 22 L BUN 24 H Creatinine 1.47 H Glucose 187 H Calcium 8.4 L Consult Discharge Plan - Plan Referrals: Alex Welch MD [Primary Care Provider] -
[2018-03-14] MEDS: *HR* OxyCODONE Immed Rel 5 MG TABLET PO PRN (02:56)
[2018-03-14] MEDS: *HR* Metoprolol 5 MG/5 ML VIAL IVP SCH ×2 (05:38→11:54)
[2018-03-14] MEDS: *HR* Heparin 5,000 UNIT/ML VIAL SQ SCH (05:39)
[2018-03-14] MEDS: Insulin LISPRO 300 UNITS/3 ML VIAL SQ SCH ×2 (07:52→11:56)
[2018-03-14] MEDS: Cholecalciferol (D-3) 1,000 UNIT TABLET PO SCH (08:03)
[2018-03-14] MEDS: amLODIPine 5 MG TABLET PO SCH (08:03)
[2018-03-14 11:10] VITALS: BP 159/65
== END 2018-03-14 15:00 | disposition home or self-care (01) ==
LOC: SAMDAY 10:28 → 2NNU 16:32 → INTOOBSV 16:32
PROVIDERS: ADMIT Surgery; ATTEND Surgery